=== PATIENT | female | born 1975 | race Asian ===

== ENCOUNTER 2018-07-06 19:42 | Emergency (ER) | payer SELFPAY ==
[~2018-07-06] VITALS: Ht 165.1 cm; Wt 70.0 kg
[2018-07-06 19:45] VITALS: Ht 165.1 cm; Wt 70.0 kg
[2018-07-06 21:39] LABS: BASOPHIL % 0.7 % (0-2); PLATELET COUNT 366 x10^3mcL (130-400)
[2018-07-06 21:50] LABS: CALCIUM 9.3 mg/dL (8.5-10.1); CARBON DIOXIDE 26.3 mmol/L (21-32); CHLORIDE SERUM 98 mmol/L (98-107); CREATININE SERUM 0.6 mg/dL (0.6-1.0); GFR1 > 60 mL/min; GLUCOSE SERUM 263 mg/dL (74-106); POTASSIUM SERUM 3.6 mmol/L (3.5-5.1); SODIUM SERUM 133 mmol/L (136-145)
[2018-07-06 21:55] LABS: ALBUMIN 3.5 g/dL (3.4-5.0); ALKALINE PHOSPHATASE 63 U/L (46-116); ALT/SGPT 39 U/L (14-59); AST/SGOT 9 U/L (15-37); TOTAL PROTEIN, SERUM 8.1 g/dL (6.4-8.2)
[2018-07-06 23:46] VITALS: BP 125/78
== END 2018-07-06 23:46 | disposition home or self-care (01) ==
LOC: ED 19:42
PROVIDERS: Emergency Medicine
DX: R07.89 Other chest pain (principal); J45.909 Unspecified asthma, uncomplicated; E11.9 Type 2 diabetes mellitus without complications
CPT/HCPCS: 36415; J1885; Q0092